=== PATIENT | female | born 1990 | race American Indian/Alaskan Native ===

== ENCOUNTER 2020-10-31 01:07 | Emergency (ER) | payer MEDICAID, OTHER ==
--- NOTE | 2020-10-31 01:44 | EDM.PDOC ---
ED HPI GENERAL MEDICAL PROBLEM - General Chief Complaint: Gastrointestinal Problem Stated Complaint: STOMACH Time Seen by Provider: 10/31/20 01:35 Source of Information: Reports: Patient History Limitations: Reports: No Limitations - History of Present Illness INITIAL COMMENTS - FREE TEXT/NARRATIVE: This 30 yo female patient reports to the ED with upper abdominal pain and nause a. The patient reports she did take a Zofran while at home and now her nausea is under control. The patient reports she does have a history of GERD, but does not take anything for GERD. The patient did not take any other medications for symptom relief prior to arrival in the ED. 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 [No Known Home Meds] 10/31/20 [History] Past Medical History Gastrointestinal History: Reports: GERD - Past Surgical History Other GI Surgeries/Procedures: states had GERD a few years ago Social & Family History - Tobacco Use Tobacco Use Status *Q: Never Tobacco User Second Hand Smoke Exposure: No - Caffeine Use Caffeine Use: Reports: Coffee, Soda - Recreational Drug Use Recreational Drug Use: No ED ROS GENERAL - Review of Systems Review Of Systems: Comprehensive ROS is negative, except as noted in HPI. ED EXAM, GI/ABD - Physical Exam Exam: See Below Exam Limited By: No Limitations General Appearance: Alert, WD/WN, Mild Distress Eyes: Bilateral: Normal Appearance, EOMI Ears: Normal External Exam, Normal Canal, Hearing Grossly Normal, Normal TMs Nose: Normal Inspection, Normal Mucosa, No Blood Throat/Mouth: Normal Inspection, Normal Lips, Normal Teeth, Normal Gums, Normal Oropharynx, Normal Voice, No Airway Compromise Head: Atraumatic, Normocephalic Neck: Normal Inspection, Supple, Non-Tender, Full Range of Motion Respiratory/Chest: No Respiratory Distress, Lungs Clear, Normal Breath Sounds, No Accessory Muscle Use, Chest Non-Tender Cardiovascular: Normal Peripheral Pulses, Regular Rate, Rhythm, No Edema, No Gallop, No JVD, No Murmur, No Rub GI/Abdominal Exam: Normal Bowel Sounds, No Distention, No Abnormal Bruit, No Mass, Pelvis Stable, Tender (epigastric area) (Female) Exam: Deferred Rectal (Female) Exam: Deferred Back Exam: Normal Inspection, Full Range of Motion, NT Extremities: Normal Inspection, Normal Range of Motion, Non-Tender, Normal Capillary Refill, No Pedal Edema Neurological: Alert, Oriented, CN II-XII Intact, Normal Cognition, Normal Gait, Normal Reflexes, No Motor/Sensory Deficits Psychiatric: Normal Affect, Normal Mood Skin Exam: Warm, Dry, Intact, Normal Color, No Rash Lymphatic: No Adenopathy Course - Vital Signs Last Recorded V/S: Last Vital Signs Temp 36.6 C 10/31/20 01:21 Pulse 84 10/31/20 01:21 Resp 18 10/31/20 01:21 BP 138/91 H 10/31/20 01:21 Pulse Ox 98 10/31/20 01:21 - Orders/Labs/Meds Labs: Laboratory Tests 10/31/20 10/31/20 10/31/20 Range/Units 01:29 01:29 02:45 WBC 12.7 H (5.0-10.0) 10^3/uL RBC 4.75 (4.2-5.4) 10^6/uL Hgb 13.8 (12.0-16.0) g/dL Hct 41.1 (37.0-47.0) % MCV 86.5 (80-100) fL MCH 29.1 (27.0-34.0) pg MCHC 33.6 (33.0-35.0) g/dL Plt Count 165 (150-450) 10^3/uL Neut % (Auto) 74.5 (42.2-75.2) % Lymph % (Auto) 16.4 L (20.5-50.1) % Falls % (Auto) 7.9 (2-8) % Eos % (Auto) 0.9 L (1.0-3.0) % Baso % (Auto) 0.3 (0.0-1.0) % Sodium 141 (136-145) mmol/L Potassium 3.5 (3.5-5.1) mmol/L Chloride 104 (98-107) mmol/L Carbon Dioxide 27 (21-32) mmol/L Anion Gap 13.5 H (7-13) mEq/L BUN 14 (7-18) mg/dL Creatinine 0.81 (0.55-1.02) mg/dL Est Cr Clr Drug Dosing 90.55 mL/min Estimated GFR (MDRD) > 60 BUN/Creatinine Ratio 17.3 (No establ ref range) Glucose 111 H (70-99) mg/dL Calcium 8.4 L (8.5-10.1) mg/dL Total Bilirubin 0.6 (0.2-1.0) mg/dL AST 27 (15-37) U/L ALT 51 (14-59) U/L Alkaline Phosphatase 54 (46-116) U/L Total Protein 7.3 (6.4-8.2) g/dL Albumin 3.8 (3.4-5.0) g/dL Globulin 3.5 Albumin/Globulin Ratio 1.1 Amylase 41 (25-115) U/L Lipase 196 (73-393) U/L Urine Color Yellow (YELLOW) Urine Appearance Clear (CLEAR) Urine pH 7.0 (5.0-9.0) Ur Specific [place] >= 1.030 (1.005-1.030) Urine Protein Negative (NEGATIVE) Urine Glucose (UA) Negative (NEGATIVE) Urine Ketones 15 H (NEGATIVE) Urine Occult Blood Negative (NEGATIVE) Urine Nitrite Negative (NEGATIVE) Urine Bilirubin Negative (NEGATIVE) Urine Urobilinogen 0.2 (0.2-1.0) mg/dL Ur Leukocyte Esterase Negative (NEGATIVE) Urine HCG, Qual Urine Opiates Screen (NEGATIVE) Ur Oxycodone Screen (NEGATIVE) Urine Methadone Screen (NEGATIVE) Ur Barbiturates Screen (NEGATIVE) U Tricyclic Antidepress (NEGATIVE) Ur Phencyclidine Scrn (NEGATIVE) Ur Amphetamine Screen (NEGATIVE) U Methamphetamines Scrn (NEGATIVE) Urine MDMA Screen (NEGATIVE) U Benzodiazepines Scrn (NEGATIVE) Urine Cocaine Screen (NEGATIVE) U Marijuana (THC) Screen (NEGATIVE) 10/31/20 10/31/20 Range/Units 02:45 02:45 WBC (5.0-10.0) 10^3/uL RBC (4.2-5.4) 10^6/uL Hgb (12.0-16.0) g/dL Hct (37.0-47.0) % MCV (80-100) fL MCH (27.0-34.0) pg MCHC (33.0-35.0) g/dL Plt Count (150-450) 10^3/uL Neut % (Auto) (42.2-75.2) % Lymph % (Auto) (20.5-50.1) % Falls % (Auto) (2-8) % Eos % (Auto) (1.0-3.0) % Baso % (Auto) (0.0-1.0) % Sodium (136-145) mmol/L Potassium (3.5-5.1) mmol/L Chloride (98-107) mmol/L Carbon Dioxide (21-32) mmol/L Anion Gap (7-13) mEq/L BUN (7-18) mg/dL Creatinine (0.55-1.02) mg/dL Est Cr Clr Drug Dosing mL/min Estimated GFR (MDRD) BUN/Creatinine Ratio (No establ ref range) Glucose (70-99) mg/dL Calcium (8.5-10.1) mg/dL Total Bilirubin (0.2-1.0) mg/dL AST (15-37) U/L ALT (14-59) U/L Alkaline Phosphatase (46-116) U/L Total Protein (6.4-8.2) g/dL Albumin (3.4-5.0) g/dL Globulin Albumin/Globulin Ratio Amylase (25-115) U/L Lipase (73-393) U/L Urine Color (YELLOW) Urine Appearance (CLEAR) Urine pH (5.0-9.0) Ur Specific [place] (1.005-1.030) Urine Protein (NEGATIVE) Urine Glucose (UA) (NEGATIVE) Urine Ketones (NEGATIVE) Urine Occult Blood (NEGATIVE) Urine Nitrite (NEGATIVE) Urine Bilirubin (NEGATIVE) Urine Urobilinogen (0.2-1.0) mg/dL Ur Leukocyte Esterase (NEGATIVE) Urine HCG, Qual Negative Urine Opiates Screen Negative (NEGATIVE) Ur Oxycodone Screen Negative (NEGATIVE) Urine Methadone Screen Negative (NEGATIVE) Ur Barbiturates Screen Negative (NEGATIVE) U Tricyclic Antidepress Negative (NEGATIVE) Ur Phencyclidine Scrn Negative (NEGATIVE) Ur Amphetamine Screen Negative (NEGATIVE) U Methamphetamines Scrn Negative (NEGATIVE) Urine MDMA Screen Negative (NEGATIVE) U Benzodiazepines Scrn Negative (NEGATIVE) Urine Cocaine Screen Negative (NEGATIVE) U Marijuana (THC) Screen Positive H (NEGATIVE) Meds: Medications Discontinued Medications Generic Name Dose Route Start Last Admin Trade Name Jasonq PRN Reason Stop Dose Admin Al Hydroxide/Mg Hydroxide 30 ml 10/31/20 03:02 Gi Cocktail Oral Solution 30 Ml PO 10/31/20 03:03 ONETIME ONE Departure - Departure Time of Disposition: 03:10 Disposition: Home, Self-Care 01 Condition: Fair Clinical Impression: GERD (gastroesophageal reflux disease) Qualifiers: Esophagitis presence: esophagitis presence not specified Qualified Code(s): K21.9 - Gastro-esophageal reflux disease without esophagitis - Discharge Information *PRESCRIPTION DRUG MONITORING PROGRAM REVIEWED*: Not Applicable *COPY OF PRESCRIPTION DRUG MONITORING REPORT IN PATIENT KI: Not Applicable Instructions: Food Choices for Gastroesophageal Reflux Disease, Adult, Gastroesophageal Reflux Disease, Adult, [id number] Forms: ED Department Discharge Care Plan Goals: The patient was advised of the examination and lab results during the visit. The patient was given a GI Cocktail while in the ED. The patient was discharged with a script for Omeprazole (20 mg) #30 to take 1 by mouth daily 30 minutes prior to eating. If the patient has any additional symptoms or concerns, the patient should either return to the emergency department or visit her primary care facility. Sepsis Event Note (ED) - Evaluation Sepsis Screening Result: No Definite Risk - Focused Exam Vital Signs: Vital Signs Temp Pulse Resp BP Pulse Ox 10/31/20 01:21 36.6 C 84 18 138/91 H 98
[2020-10-31 01:54] LABS: ANION GAP 13.5 mEq/L (7-13); CHLORIDE,CL 104 mmol/L (98-107); SODIUM,NA 141 mmol/L (136-145)
[2020-10-31] MEDS ORDERED: GI Cocktail Oral Solution 30 ML PO ONE (03:02)
== END 2020-10-31 03:16 | disposition home or self-care (01) ==
LOC: DL.ED 01:07
DX: K21.9 Gastro-esophageal reflux disease without esophagitis (principal); Z88.0 Allergy status to penicillin
CPT/HCPCS: 36415; 80053; 80305; 81003; 81025; 82150; 83690; 85025; 99283; 99284; A9270

== ENCOUNTER 2020-11-17 01:03 | Emergency (ER) | payer OTHER, MEDICAID ==
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
[2020-11-17] MEDS ORDERED: Acetaminophen/HYDROcodone 325-10 MG Tab PO ONE (03:08)
== END 2020-11-17 04:15 | disposition home or self-care (01) ==
LOC: DL.ED 01:03
DX: S92.032A Displaced avulsion fracture of tuberosity of left calcaneus, initial encounter for closed fracture (principal); S00.83XA Contusion of other part of head, initial encounter; Z88.0 Allergy status to penicillin; V49.49XA Driver injured in collision with other motor vehicles in traffic accident, initial encounter
CPT/HCPCS: 29515; 70140; 73600-LT; 73620-LT; 99284; 99284-25; A9270-GY

== ENCOUNTER 2021-01-03 07:01 | Emergency (ER) | payer MEDICAID ==
[2021-01-03] MEDS ORDERED: Ondansetron 4 MG/2 ML SDV IVPUSH ONE (07:18)
[2021-01-03] MEDS ORDERED: Sodium Chloride 0.9% 1,000 ML IV ONE (07:18)
[2021-01-03] MEDS ORDERED: GI Cocktail Oral Solution 30 ML PO ONE (07:19)
--- NOTE | 2021-01-03 07:25 | EDM.PDOC ---
ED HPI GENERAL MEDICAL PROBLEM - General Chief Complaint: Abdominal Pain Stated Complaint: STOMACH PAIN [id number] Time Seen by Provider: 01/03/21 07:22 Source of Information: Reports: Patient, RN, RN Notes Reviewed History Limitations: Reports: No Limitations - History of Present Illness INITIAL COMMENTS - FREE TEXT/NARRATIVE: Miki is a 30 y/o female with a history of GERD who presents to the ED via personal vehicle with complaints of bilateral abdominal pain and vomiting. The patient reports the pain woke her from sleep at approximately 0500 and has progressively worsened since that time. She reports her last meal was last evening and was fried chicken from [facility]. Her LMP was early December, but she is unsure of the exact date. She denies fever, shaking chills, chest pain, palpitations, shortness of breath, dysuria, hematuria, vaginal discharge, diarrhea, or constipation. She has taken no medications for these symptoms. The patient attest to smoking marijuana last night; she denies alcohol or tobacco use. Abdomen Pain Score (Numeric/FACES): 10 - Related Data Allergies Allergy/AdvReac Type Severity Reaction Status Date / Time amoxicillin Allergy Hives Verified 01/03/21 07:39 Home Meds: Home Meds . [No Known Home Meds] 10/31/20 [History] Past Medical History - Past Health History Medical/Surgical History: Denies Medical/Surgical History Gastrointestinal History: Reports: GERD - Past Surgical History Other GI Surgeries/Procedures: states had GERD a few years ago Social & Family History - Family History Family Medical History: No Pertinent Family History - Caffeine Use Caffeine Use: Reports: Soda ED ROS GENERAL - Review of Systems Review Of Systems: Comprehensive ROS is negative, except as noted in HPI. ED EXAM, GI/ABD - Physical Exam Exam: See Below Exam Limited By: No Limitations General Appearance: Alert, Anxious (Restless and tearful), Moderate Distress, Thin, Active Emesis Eyes: Bilateral: Normal Appearance, EOMI Ears: Normal External Exam, Hearing Grossly Normal Nose: Normal Inspection, Normal Mucosa Throat/Mouth: Normal Inspection, Normal Oropharynx, Normal Voice, No Airway Compromise Head: Atraumatic, Normocephalic Neck: Normal Inspection, Supple, Non-Tender, Full Range of Motion Respiratory/Chest: No Respiratory Distress, Lungs Clear, Normal Breath Sounds, No Accessory Muscle Use, Chest Non-Tender Cardiovascular: Normal Peripheral Pulses, Regular Rate, Rhythm, No Edema, No Gallop, No JVD, No Murmur, No Rub GI/Abdominal Exam: Soft, No Distention, No Abnormal Bruit, No Mass, Pelvis Stable, Tender (To bilateral ), Abnormal Bowel Sounds (Hypoactive bowel sounds) (Female) Exam: Deferred Rectal (Female) Exam: Deferred Back Exam: Normal Inspection, Full Range of Motion. No: CVA Tenderness (L), CVA Tenderness (R) Extremities: Normal Inspection, Normal Range of Motion, Non-Tender, No Pedal Edema, Normal Capillary Refill Neurological: Alert, Oriented, CN II-XII Intact, Normal Cognition, Normal Gait, No Motor/Sensory Deficits Psychiatric: Normal Affect, Normal Mood Skin Exam: Warm, Dry, Intact, Normal Color, No Rash. No: Cyanosis, Erythema, Jaundice, Mottled, Pallor, Petechiae Course - Vital Signs Last Recorded V/S: Last Vital Signs Temp 97.9 F 01/03/21 07:13 Pulse 61 01/03/21 07:13 Resp 20 01/03/21 07:13 BP 113/70 01/03/21 09:13 Pulse Ox 100 01/03/21 07:13 - Orders/Labs/Meds Labs: Laboratory Tests 01/03/21 01/03/21 01/03/21 Range/Units 07:15 07:15 07:15 WBC 14.0 H (5.0-10.0) 10^3/uL RBC 5.07 (4.2-5.4) 10^6/uL Hgb 14.9 (12.0-16.0) g/dL Hct 43.2 (37.0-47.0) % MCV 85.2 (80-100) fL MCH 29.4 (27.0-34.0) pg MCHC 34.5 (33.0-35.0) g/dL Plt Count 161 (150-450) 10^3/uL Neut % (Auto) 77.5 H (42.2-75.2) % Lymph % (Auto) 14.0 L (20.5-50.1) % [place] % (Auto) 7.9 (2-8) % Eos % (Auto) 0.4 L (1.0-3.0) % Baso % (Auto) 0.2 (0.0-1.0) % Sodium 141 (136-145) mmol/L Potassium 3.6 (3.5-5.1) mmol/L Chloride 104 (98-107) mmol/L Carbon Dioxide 22 (21-32) mmol/L Anion Gap 18.6 H (7-13) mEq/L BUN 7 (7-18) mg/dL Creatinine 0.83 (0.55-1.02) mg/dL Est Cr Clr Drug Dosing 88.37 mL/min Estimated GFR (MDRD) > 60 BUN/Creatinine Ratio 8.4 (No establ ref range) Glucose 126 H (70-99) mg/dL Lactic Acid 1.7 (0.4-2.0) mmol/L Calcium 8.4 L (8.5-10.1) mg/dL Magnesium 2.1 (1.8-2.4) mg/dL Total Bilirubin 1.0 (0.2-1.0) mg/dL AST 50 H (15-37) U/L ALT 64 H (14-59) U/L Alkaline Phosphatase 57 (46-116) U/L C-Reactive Protein < 0.2 (0.0-0.9) mg/dL Total Protein 7.5 (6.4-8.2) g/dL Albumin 3.9 (3.4-5.0) g/dL Globulin 3.6 Albumin/Globulin Ratio 1.1 Amylase 46 (25-115) U/L Lipase 179 (73-393) U/L Urine Color (YELLOW) Urine Appearance (CLEAR) Urine pH (5.0-9.0) Ur Specific [place] (1.005-1.030) Urine Protein (NEGATIVE) Urine Glucose (UA) (NEGATIVE) Urine Ketones (NEGATIVE) Urine Occult Blood (NEGATIVE) Urine Nitrite (NEGATIVE) Urine Bilirubin (NEGATIVE) Urine Urobilinogen (0.2-1.0) mg/dL Ur Leukocyte Esterase (NEGATIVE) Urine RBC /HPF Urine WBC (0-5/HPF) /HPF Ur Epithelial Cells (NOT SEEN) /HPF Amorphous Sediment (NOT SEEN) /HPF Urine Bacteria (0-FEW/HPF) /HPF Urine Mucus (NOT SEEN) /LPF Urine HCG, Qual Urine Opiates Screen (NEGATIVE) Ur Oxycodone Screen (NEGATIVE) Urine Methadone Screen (NEGATIVE) Ur Barbiturates Screen (NEGATIVE) U Tricyclic Antidepress (NEGATIVE) Ur Phencyclidine Scrn (NEGATIVE) Ur Amphetamine Screen (NEGATIVE) U Methamphetamines Scrn (NEGATIVE) Urine MDMA Screen (NEGATIVE) U Benzodiazepines Scrn (NEGATIVE) Urine Cocaine Screen (NEGATIVE) U Marijuana (THC) Screen (NEGATIVE) Ethyl Alcohol < 3 (0) mg/dL 01/03/21 01/03/21 01/03/21 Range/Units 07:49 07:49 07:49 WBC (5.0-10.0) 10^3/uL RBC (4.2-5.4) 10^6/uL Hgb (12.0-16.0) g/dL Hct (37.0-47.0) % MCV (80-100) fL MCH (27.0-34.0) pg MCHC (33.0-35.0) g/dL Plt Count (150-450) 10^3/uL Neut % (Auto) (42.2-75.2) % Lymph % (Auto) (20.5-50.1) % [place] % (Auto) (2-8) % Eos % (Auto) (1.0-3.0) % Baso % (Auto) (0.0-1.0) % Sodium (136-145) mmol/L Potassium (3.5-5.1) mmol/L Chloride (98-107) mmol/L Carbon Dioxide (21-32) mmol/L Anion Gap (7-13) mEq/L BUN (7-18) mg/dL Creatinine (0.55-1.02) mg/dL Est Cr Clr Drug Dosing mL/min Estimated GFR (MDRD) BUN/Creatinine Ratio (No establ ref range) Glucose (70-99) mg/dL Lactic Acid (0.4-2.0) mmol/L Calcium (8.5-10.1) mg/dL Magnesium (1.8-2.4) mg/dL Total Bilirubin (0.2-1.0) mg/dL AST (15-37) U/L ALT (14-59) U/L Alkaline Phosphatase (46-116) U/L C-Reactive Protein (0.0-0.9) mg/dL Total Protein (6.4-8.2) g/dL Albumin (3.4-5.0) g/dL Globulin Albumin/Globulin Ratio Amylase (25-115) U/L Lipase (73-393) U/L Urine Color Dark yellow (YELLOW) Urine Appearance Slightly cloudy (CLEAR) Urine pH 7.0 (5.0-9.0) Ur Specific [place] 1.025 (1.005-1.030) Urine Protein 30 H (NEGATIVE) Urine Glucose (UA) Negative (NEGATIVE) Urine Ketones >=160 H (NEGATIVE) Urine Occult Blood Negative (NEGATIVE) Urine Nitrite Negative (NEGATIVE) Urine Bilirubin Small H (NEGATIVE) Urine Urobilinogen 1.0 (0.2-1.0) mg/dL Ur Leukocyte Esterase Small H (NEGATIVE) Urine RBC Not seen /HPF Urine WBC 5-10 H (0-5/HPF) /HPF Ur Epithelial Cells Moderate H (NOT SEEN) /HPF Amorphous Sediment Moderate H (NOT SEEN) /HPF Urine Bacteria Few (0-FEW/HPF) /HPF Urine Mucus Not seen (NOT SEEN) /LPF Urine HCG, Qual Negative Urine Opiates Screen Negative (NEGATIVE) Ur Oxycodone Screen Negative (NEGATIVE) Urine Methadone Screen Negative (NEGATIVE) Ur Barbiturates Screen Negative (NEGATIVE) U Tricyclic Antidepress Negative (NEGATIVE) Ur Phencyclidine Scrn Negative (NEGATIVE) Ur Amphetamine Screen Negative (NEGATIVE) U Methamphetamines Scrn Negative (NEGATIVE) Urine MDMA Screen Negative (NEGATIVE) U Benzodiazepines Scrn Negative (NEGATIVE) Urine Cocaine Screen Negative (NEGATIVE) U Marijuana (THC) Screen Positive H (NEGATIVE) Ethyl Alcohol (0) mg/dL Meds: Medications Discontinued Medications Generic Name Dose Route Start Last Admin Trade Name Freq PRN Reason Stop Dose Admin Al Hydroxide/Mg Hydroxide 30 ml 01/03/21 07:19 01/03/21 07:38 Gi Cocktail Oral Solution 30 Ml PO 01/03/21 07:20 30 ml ONETIME ONE Administration Hydromorphone HCl 1 mg 01/03/21 08:16 01/03/21 08:19 Hydromorphone 1 Mg/Ml Syringe IVPUSH 01/03/21 08:17 1 mg ONETIME ONE Administration Sodium Chloride 1,000 mls @ 999 mls/hr 01/03/21 07:18 01/03/21 07:27 Normal Saline IV 01/03/21 08:18 999 mls/hr .BOLUS ONE Administration Vancomycin HCl 1.25 gm/ Sodium 250 mls @ 167 mls/hr 01/03/21 09:51 01/03/21 10:03 Chloride IV 01/03/21 11:20 167 mls/hr ONETIME ONE Administration Iopamidol 100 ml 01/03/21 10:47 01/03/21 10:48 Iopamidol 612 Mg/Ml 100 Ml Bottle IVPUSH 01/03/21 10:48 100 ml ONETIME ONE Administration Metoclopramide HCl 10 mg 01/03/21 07:49 01/03/21 07:56 Metoclopramide 10 Mg/2 Ml Sdv IVPUSH 01/03/21 07:50 10 mg ONETIME ONE Administration Ondansetron HCl 4 mg 01/03/21 07:18 01/03/21 07:28 Ondansetron 4 Mg/2 Ml Sdv IVPUSH 01/03/21 07:19 4 mg ONETIME ONE Administration - Radiology Interpretation Free Text/Narrative:: [facility] Final Radiology Report Call: [phone] assistance Online chat: [email or web address] Name: MIKI FAULKNER Age: 30Years F Date: 01/03/2021 SSN: -- : [id number] Study: CT ABDOMEN PELVIS W CONT Requesting Physician: Darlene Cruz Images: [id number] Addl Studies: Provided Clinical History: Bilateral upper abdominal pain; WBC 14; Vomiting Contrast: With Contrast Medium: Isovue Contrast Amount: 75 mL Contrast Method: Intravenous (IV) Page 1 of 2 PROCEDURE INFORMATION: Exam: CT Abdomen And Pelvis With Contrast Exam date and time: 01/03/2021 9:09 AM Age: 30 years old Clinical indication: Abdominal pain; Additional info: Bilateral upper abdominal pain; Wbc 14; Vomiting TECHNIQUE: Imaging protocol: Computed tomography of the abdomen and pelvis with contrast. Radiation optimization: All CT scans at this facility use at least one of these dose optimization techniques: automated exposure control; mA and/or kV adjustment per patient size (includes targeted exams where dose is matched to clinical indication); or iterative reconstruction. Contrast material: ISOVUE; Contrast volume: 75 ml; Contrast route: INTRAVENOUS (IV); COMPARISON: No relevant prior studies available. FINDINGS: Liver: Normal. No mass. Gallbladder and bile ducts: Normal. No calcified stones. No ductal dilation. Pancreas: Normal. No ductal dilation. Spleen: Normal. No splenomegaly. Adrenal glands: Normal. No mass. Kidneys and ureters: Normal. No hydronephrosis. Stomach and bowel: Unremarkable. No obstruction. No mucosal thickening. Appendix: Dilated fluid-filled appendix consistent with appendicitis. Mild periappendiceal soft tissue stranding. Areas of slight increased density within the appendiceal lumen suspicious for appendicoliths. Maximum diameter of the appendix is approximately 1 cm. No evidence of appendiceal perforation. Intraperitoneal space: Unremarkable. No free air. No significant fluid collection. Vasculature: Normal variant retroaortic left renal vein. Lymph nodes: Unremarkable. No enlarged lymph nodes. Urinary bladder: Unremarkable as visualized. Reproductive: Unremarkable as visualized. Bones/joints: Unremarkable. No acute fracture. Soft tissues: Unremarkable. Other findings: No abscess identified. IMPRESSION: Acute appendicitis with possible tiny appendicoliths. No findings to suggest perforation. THIS REPORT CONTAINS FINDINGS THAT MAY BE CRITICAL TO PATIENT CARE. The findings were verbally communicated via telephone conference with Darlene Cruz at 9:3 9 AM CDT on 01/03/2021. The findings were acknowledged and understood. Thank you for allowing us to participate in the care of your patient. Dictated and Authenticated by: Devorah David MD 01/03/2021 9:40 AM Central Time ([place] & [place]) - Re-Assessments/Exams Free Text/Narrative Re-Assessment/Exam: 01/03/21 1L NS bolus and Zofran 4mg IVP administered while labs pending. Patient given GI cocktail. Will obtain CT abdomen/pelvis due to persistent pain and elevated WBC. Dilaudid 1mg IVP administered. Appendicitis confirmed via CT. Case discussed with Dr. Aviles who kindly agreed to accept patient for transfer. Will give Vanco prophylactic, as patient is allergic to Zosyn. Findings of examination, lab work, imaging, and discussion with Dr. Aviles reviewed with patient. Patient verbalized understanding and agreement with the plan of care. Departure - Departure Time of Disposition: 09:53 Disposition: DC/Tfer to [facility] 02 Condition: Good Clinical Impression: Appendicitis Qualifiers: Appendicitis type: acute appendicitis Acute appendicitis type: with localized peritonitis Appendicitis gangrene presence: without gangrene Appendicitis perforation presence: without perforation Appendicitis abscess presence: without abscess Qualified Code(s): K35.30 - Acute appendicitis with localized peritonitis, without perforation or gangrene - Discharge Information Forms: ED Department Discharge, Interfacility Transfer [facility] Sepsis Event Note (ED) - Evaluation Sepsis Screening Result: No Definite Risk
[2021-01-03 07:42] LABS: ANION GAP 18.6 mEq/L (7-13); CHLORIDE,CL 104 mmol/L (98-107); SODIUM,NA 141 mmol/L (136-145)
[2021-01-03] MEDS ORDERED: Metoclopramide 10 MG/2 ML SDV IVPUSH ONE (07:49)
[2021-01-03] MEDS ORDERED: HYDROmorphone 1 MG/ML Syringe IVPUSH ONE (08:16)
--- NOTE | 2021-01-03 09:40 | CT ---
PROCEDURE INFORMATION: Exam: CT Abdomen And Pelvis With Contrast Exam date and time: 01/03/2021 9:09 AM Age: 30 years old Clinical indication: Abdominal pain; Additional info: Bilateral upper abdominal pain; Wbc 14; Vomiting TECHNIQUE: Imaging protocol: Computed tomography of the abdomen and pelvis with contrast. Radiation optimization: All CT scans at this facility use at least one of these dose optimization techniques: automated exposure control; mA and/or kV adjustment per patient size (includes targeted exams where dose is matched to clinical indication); or iterative reconstruction. Contrast material: ISOVUE; Contrast volume: 75 ml; Contrast route: INTRAVENOUS (IV); COMPARISON: No relevant prior studies available. FINDINGS: Liver: Normal. No mass. Gallbladder and bile ducts: Normal. No calcified stones. No ductal dilation. Pancreas: Normal. No ductal dilation. Spleen: Normal. No splenomegaly. Adrenal glands: Normal. No mass. Kidneys and ureters: Normal. No hydronephrosis. Stomach and bowel: Unremarkable. No obstruction. No mucosal thickening. Appendix: Dilated fluid-filled appendix consistent with appendicitis. Mild periappendiceal soft tissue stranding. Areas of slight increased density within the appendiceal lumen suspicious for appendicoliths. Maximum diameter of the appendix is approximately 1 cm. No evidence of appendiceal perforation. Intraperitoneal space: Unremarkable. No free air. No significant fluid collection. Vasculature: Normal variant retroaortic left renal vein. Lymph nodes: Unremarkable. No enlarged lymph nodes. Urinary bladder: Unremarkable as visualized. Reproductive: Unremarkable as visualized. Bones/joints: Unremarkable. No acute fracture. Soft tissues: Unremarkable. Other findings: No abscess identified. IMPRESSION: Acute appendicitis with possible tiny appendicoliths. No findings to suggest perforation. THIS REPORT CONTAINS FINDINGS THAT MAY BE CRITICAL TO PATIENT CARE. The findings were verbally communicated via telephone conference with Darlene Cruz at 9:39 AM CDT on 01/03/2021. The findings were acknowledged and understood.
[2021-01-03] MEDS ORDERED: Iopamidol 612 MG/ML 100 ML Bottle IVPUSH ONE (10:47)
== END 2021-01-03 10:22 ==
LOC: DL.ED 07:01
DX: K35.30 Acute appendicitis with localized peritonitis, without perforation or gangrene (principal); K21.9 Gastro-esophageal reflux disease without esophagitis; Z88.0 Allergy status to penicillin
CPT/HCPCS: 36415; 74177; 80053; 80305-QW; 80307; 81001; 81025; 82150; 83605; 83690; 83735; 85025; 86140; 87086; 96374; 96375; 99284; 99285-25; A9270-GY; J1170; J2405; J2765; J3370; J7030; J7050; Q9967

== ENCOUNTER 2021-06-25 11:03 | Emergency (ER) | payer MEDICAID ==
[2021-06-25] MEDS ORDERED: Ibuprofen 600 MG Tab PO ONE (12:10)
[2021-06-25 12:13] LABS: AMPHETAMINES,URINE NEGATIVE (NEGATIVE); BARBITURATES,URINE NEGATIVE (NEGATIVE); BENZODIAZEPINE,URINE NEGATIVE (NEGATIVE); MDMA (ECSTASY), URINE NEGATIVE (NEGATIVE); METHADONE,URINE NEGATIVE (NEGATIVE); METHAMPHETAMINES,URINE NEGATIVE (NEGATIVE); OPIATES,URINE NEGATIVE (NEGATIVE); OXYCODONE,URINE NEGATIVE (NEGATIVE); PHENCYCLIDINE,URINE NEGATIVE (NEGATIVE); TCA,URINE NEGATIVE (NEGATIVE)
[2021-06-25 12:31] LABS: ANION GAP 15.8 mEq/L (7-13); CHLORIDE,CL 102 mmol/L (98-107); SODIUM,NA 139 mmol/L (136-145)
--- NOTE | 2021-06-25 12:41 | EDM.PDOC ---
ED HPI GENERAL MEDICAL PROBLEM - General Chief Complaint: Abdominal Pain Stated Complaint: LOWER ABDOMINAL PAIN Time Seen by Provider: 06/25/21 11:30 Source of Information: Reports: Patient, RN, RN Notes Reviewed History Limitations: Reports: No Limitations - History of Present Illness INITIAL COMMENTS - FREE TEXT/NARRATIVE: Ora is a 31 y/o female who presents to the ED via personal vehicle with complaints of abdominal pain and diarrhea. The patient states her symptoms began this morning and have progressively worsened in that time. She reports she was experiencing symptoms of constipation yesterday which prompted her to take ExLax this morning; she has since experienced one loose stool. The patient characterizes her pain as a sharp cramp which radiates across her lower abdomen and into her suprapubic region. She notes she is five days into her normal menses. She denies fever, chest pain/pressure, palpitations, shortness of breath, nausea, vomiting, dyspepsia, dysuria, hematochezia, or melena. The patient denies tobacco, alcohol, or recreational drug use. Her last meal was last night. Lower Abdominal Pain Score (Numeric/FACES): 5 - Related Data Allergies Allergy/AdvReac Type Severity Reaction Status Date / Time amoxicillin Allergy Hives Verified 01/03/21 07:39 Home Meds: Home Meds . [No Known Home Meds] 10/31/20 [History] Past Medical History - Past Health History Medical/Surgical History: Denies Medical/Surgical History Gastrointestinal History: Reports: GERD - Past Surgical History GI Surgical History: Reports: Appendectomy Other GI Surgeries/Procedures: states had GERD a few years ago Social & Family History - Family History Family Medical History: No Pertinent Family History - Tobacco Use Tobacco Use Status *Q: Unknown Ever Used Tobacco - Caffeine Use Caffeine Use: Reports: Energy Drinks - Recreational Drug Use Recreational Drug Use: No ED ROS GENERAL - Review of Systems Review Of Systems: Comprehensive ROS is negative, except as noted in HPI. ED EXAM, GI/ABD - Physical Exam Exam: See Below Exam Limited By: No Limitations General Appearance: Alert, Mild Distress (Abdominal pain). No: Active Emesis Eyes: Bilateral: Normal Appearance, EOMI Ears: Normal External Exam, Hearing Grossly Normal Nose: Normal Inspection, Normal Mucosa, No Blood Throat/Mouth: Normal Inspection, Normal Oropharynx, Normal Voice, No Airway Compromise Head: Atraumatic, Normocephalic Neck: Normal Inspection, Supple, Non-Tender, Full Range of Motion Respiratory/Chest: No Respiratory Distress, Lungs Clear, Normal Breath Sounds, No Accessory Muscle Use, Chest Non-Tender Cardiovascular: Normal Peripheral Pulses, Regular Rate, Rhythm, No Edema, No Gallop, No JVD, No Murmur, No Rub GI/Abdominal Exam: Soft, No Distention, No Abnormal Bruit, No Mass, Pelvis Stable, Guarding, Tender (Diffuse, more prominent to RLQ), Abnormal Bowel Sounds (Hyperactive bowel sounds). No: Rigid, Rebound (Female) Exam: Deferred Rectal (Female) Exam: Deferred Back Exam: Normal Inspection, Full Range of Motion Extremities: Normal Inspection, Normal Range of Motion, Non-Tender, No Pedal Edema, Normal Capillary Refill Neurological: Alert, Oriented, CN II-XII Intact, Normal Cognition, Normal Gait, No Motor/Sensory Deficits Psychiatric: Normal Affect, Normal Mood Skin Exam: Warm, Dry, Intact, Normal Color, No Rash. No: Cyanosis, Jaundice, Mottled, Pallor Course - Vital Signs Last Recorded V/S: Last Vital Signs Temp 99.2 F 06/25/21 11:25 Pulse 94 06/25/21 11:25 Resp 14 06/25/21 11:25 BP 125/93 H 06/25/21 11:25 Pulse Ox 98 06/25/21 11:25 - Orders/Labs/Meds Labs: Laboratory Tests 06/25/21 06/25/21 06/25/21 Range/Units 11:34 11:34 11:34 WBC (5.0-10.0) 10^3/uL RBC (4.2-5.4) 10^6/uL Hgb (12.0-16.0) g/dL Hct (37.0-47.0) % MCV (80-100) fL MCH (27.0-34.0) pg MCHC (33.0-35.0) g/dL Plt Count (150-450) 10^3/uL Neut % (Auto) (42.2-75.2) % Lymph % (Auto) (20.5-50.1) % [place] % (Auto) (2-8) % Eos % (Auto) (1.0-3.0) % Baso % (Auto) (0.0-1.0) % Sodium (136-145) mmol/L Potassium (3.5-5.1) mmol/L Chloride (98-107) mmol/L Carbon Dioxide (21-32) mmol/L Anion Gap (7-13) mEq/L BUN (7-18) mg/dL Creatinine (0.55-1.02) mg/dL Est Cr Clr Drug Dosing mL/min Estimated GFR (MDRD) BUN/Creatinine Ratio (No establ ref range) Glucose (70-99) mg/dL Lactic Acid (0.4-2.0) mmol/L Calcium (8.5-10.1) mg/dL Total Bilirubin (0.2-1.0) mg/dL AST (15-37) U/L ALT (14-59) U/L Alkaline Phosphatase (46-116) U/L C-Reactive Protein (0.0-0.9) mg/dL Total Protein (6.4-8.2) g/dL Albumin (3.4-5.0) g/dL Globulin Albumin/Globulin Ratio Amylase (25-115) U/L Lipase (73-393) U/L Urine Color Red (YELLOW) Urine Appearance Turbid (CLEAR) Urine pH 7.0 (5.0-9.0) Ur Specific [place] 1.020 (1.005-1.030) Urine Protein >=300 H (NEGATIVE) Urine Glucose (UA) Negative (NEGATIVE) Urine Ketones Trace H (NEGATIVE) Urine Occult Blood Large H (NEGATIVE) Urine Nitrite Positive H (NEGATIVE) Urine Bilirubin Moderate H (NEGATIVE) Urine Urobilinogen 4.0 H (0.2-1.0) mg/dL Ur Leukocyte Esterase Trace H (NEGATIVE) Urine RBC Packed H (0-5) /HPF Urine WBC 20-30 H (0-5/HPF) /HPF Ur Epithelial Cells Not seen (NOT SEEN) /HPF Urine Bacteria Not seen (0-FEW/HPF) /HPF Urine HCG, Qual Negative Urine Opiates Screen Negative (NEGATIVE) Ur Oxycodone Screen Negative (NEGATIVE) Urine Methadone Screen Negative (NEGATIVE) Ur Barbiturates Screen Negative (NEGATIVE) U Tricyclic Antidepress Negative (NEGATIVE) Ur Phencyclidine Scrn Negative (NEGATIVE) Ur Amphetamine Screen Negative (NEGATIVE) U Methamphetamines Scrn Negative (NEGATIVE) Urine MDMA Screen Negative (NEGATIVE) U Benzodiazepines Scrn Negative (NEGATIVE) Urine Cocaine Screen Negative (NEGATIVE) U Marijuana (THC) Screen Positive H (NEGATIVE) Ethyl Alcohol (0) mg/dL 06/25/21 06/25/21 06/25/21 Range/Units 11:54 11:54 11:54 WBC 15.0 H (5.0-10.0) 10^3/uL RBC 4.82 (4.2-5.4) 10^6/uL Hgb 13.9 (12.0-16.0) g/dL Hct 42.4 (37.0-47.0) % MCV 88.0 (80-100) fL MCH 28.8 (27.0-34.0) pg MCHC 32.8 L (33.0-35.0) g/dL Plt Count 168 (150-450) 10^3/uL Neut % (Auto) 82.4 H (42.2-75.2) % Lymph % (Auto) 9.7 L (20.5-50.1) % [place] % (Auto) 7.5 (2-8) % Eos % (Auto) 0.3 L (1.0-3.0) % Baso % (Auto) 0.1 (0.0-1.0) % Sodium 139 (136-145) mmol/L Potassium 3.8 (3.5-5.1) mmol/L Chloride 102 (98-107) mmol/L Carbon Dioxide 25 (21-32) mmol/L Anion Gap 15.8 H (7-13) mEq/L BUN 8 (7-18) mg/dL Creatinine 0.80 (0.55-1.02) mg/dL Est Cr Clr Drug Dosing 94.51 mL/min Estimated GFR (MDRD) > 60 BUN/Creatinine Ratio 10.0 (No establ ref range) Glucose 88 (70-99) mg/dL Lactic Acid 0.5 (0.4-2.0) mmol/L Calcium 8.3 L (8.5-10.1) mg/dL Total Bilirubin 1.3 H (0.2-1.0) mg/dL AST 41 H (15-37) U/L ALT 68 H (14-59) U/L Alkaline Phosphatase 63 (46-116) U/L C-Reactive Protein 5.6 H (0.0-0.9) mg/dL Total Protein 7.5 (6.4-8.2) g/dL Albumin 3.5 (3.4-5.0) g/dL Globulin 4.0 Albumin/Globulin Ratio 0.9 Amylase 27 (25-115) U/L Lipase 58 L (73-393) U/L Urine Color (YELLOW) Urine Appearance (CLEAR) Urine pH (5.0-9.0) Ur Specific [place] (1.005-1.030) Urine Protein (NEGATIVE) Urine Glucose (UA) (NEGATIVE) Urine Ketones (NEGATIVE) Urine Occult Blood (NEGATIVE) Urine Nitrite (NEGATIVE) Urine Bilirubin (NEGATIVE) Urine Urobilinogen (0.2-1.0) mg/dL Ur Leukocyte Esterase (NEGATIVE) Urine RBC (0-5) /HPF Urine WBC (0-5/HPF) /HPF Ur Epithelial Cells (NOT SEEN) /HPF Urine Bacteria (0-FEW/HPF) /HPF Urine HCG, Qual Urine Opiates Screen (NEGATIVE) Ur Oxycodone Screen (NEGATIVE) Urine Methadone Screen (NEGATIVE) Ur Barbiturates Screen (NEGATIVE) U Tricyclic Antidepress (NEGATIVE) Ur Phencyclidine Scrn (NEGATIVE) Ur Amphetamine Screen (NEGATIVE) U Methamphetamines Scrn (NEGATIVE) Urine MDMA Screen (NEGATIVE) U Benzodiazepines Scrn (NEGATIVE) Urine Cocaine Screen (NEGATIVE) U Marijuana (THC) Screen (NEGATIVE) Ethyl Alcohol < 3 (0) mg/dL Meds: Medications Discontinued Medications Generic Name Dose Route Start Last Admin Trade Name Jasonq PRN Reason Stop Dose Admin Fentanyl 50 mcg 06/25/21 12:48 06/25/21 12:58 Fentanyl 100 Mcg/2 Ml Sdv IVPUSH 06/25/21 12:49 50 mcg ONETIME ONE Administration Protocol Sodium Chloride 1,000 mls @ 999 mls/hr 06/25/21 12:46 06/25/21 12:57 Normal Saline IV 06/25/21 13:46 999 mls/hr .BOLUS ONE Administration Ibuprofen 600 mg 06/25/21 12:10 06/25/21 12:18 Ibuprofen 600 Mg Tab PO 06/25/21 12:11 600 mg ONETIME ONE Administration Iopamidol 100 ml 06/25/21 13:33 06/25/21 13:34 Iopamidol 612 Mg/Ml 100 Ml Bottle IVPUSH 06/25/21 13:34 75 ml ONETIME ONE Administration Ondansetron HCl 4 mg 06/25/21 12:47 06/25/21 12:57 Ondansetron 4 Mg/2 Ml Sdv IVPUSH 06/25/21 12:48 4 mg ONETIME ONE Administration - Re-Assessments/Exams Free Text/Narrative Re-Assessment/Exam: 06/25/21 NS 1L bolus, Zofran 4mg IVP, and Fentanyl 50mcg IVP administered while labs pending. CT abdomen/pelvis obtained. Findings of examination, lab work, and imaging reviewed with patient. Supportive cares discussed. Patient instructed to follow up with primary care provider regarding todays visit. Red flag signs and symptoms which would warrant immediate reevaluation reviewed. Patient verbalized understanding and agreement with the plan of care. Departure - Departure Time of Disposition: 14:31 Disposition: Home, Self-Care 01 Condition: Fair Clinical Impression: Gastroenteritis - Discharge Information *PRESCRIPTION DRUG MONITORING PROGRAM REVIEWED*: Not Applicable *COPY OF PRESCRIPTION DRUG MONITORING REPORT IN PATIENT KI: Not Applicable Instructions: Viral Gastroenteritis, Adult, [id number] Referrals: PCP,None [Primary Care Provider] - Forms: ED Department Discharge Additional Instructions: Rx: Bentyl 10mg (#20) 1.) Continue with frequent sips of fluids to stay hydrated and avoid nausea. 2.) Eat small, snack-sized meals to avoid nausea. 3.) Symptoms may persist for 7-10 days. 4.) You may take ibuprofen (Advil/Motrin) 400mg every six hours, as pain persists. You may also take acetaminophen (Tylenol) 650-1000mg every six hours, as pain persists. You may stagger these medications so you are taking a dose of either every three hours. 5.) Follow up with your primary care provider following illness course, sooner should symptoms worsen despite medications. Sepsis Event Note (ED) - Evaluation Sepsis Screening Result: No Definite Risk
[2021-06-25] MEDS ORDERED: Sodium Chloride 0.9% 1,000 ML IV ONE (12:46)
[2021-06-25] MEDS ORDERED: Ondansetron 4 MG/2 ML SDV IVPUSH ONE (12:47)
[2021-06-25] MEDS ORDERED: fentaNYL 100 MCG/2 ML SDV IVPUSH ONE (12:48)
[2021-06-25] MEDS ORDERED: Iopamidol 612 MG/ML 100 ML Bottle IVPUSH ONE (13:33)
--- NOTE | 2021-06-25 13:53 | CT ---
EXAMINATION: Abdomen Pelvis w Cont SEX: Female AGE: 31 years CLINICAL HISTORY: 31-year-old 167 pound female with diarrhea, bilateral lower quadrant pain, and abnormally elevated WBC (15,000). Appendix surgically removed December 2020. Scan technique: Volume acquisition of data from the abdomen and pelvis obtained during the intravenous administration of 75 cc nonionic Isovue contrast at 3 cc/s via injector while patient was lying supine on the Siemens multislice scanner [place], [place]. All data archived in the PACS system for storage, reformatting axial/sagittal/coronal planes and study. Interpretation: 1. Multiple small physiologic follicular type cysts identified in both ovaries. Unremarkable vascular midline uterus. 2. No extraovarian adnexal mass lesions. No free fluid in the dependent cul-de-sac. 3. Surgical clips clustered in the right lower quadrant (RLQ). Normal-appearing terminal ileum. Sigmoid diverticulosis. No inflammatory "dirty" peritoneal fat, abscess, mechanical bowel obstruction, ascites or free intraperitoneal air. 4. Gallbladder, liver, stomach, spleen, pancreas, adrenal glands and kidneys anatomically correct i.e. negative. 5. No sign of renal cortical mass lesion, nephrolithiasis or obstructive uropathy. 6. Normal caliber aortoiliac vessels. Lung bases clear. Normal cardiac silhouette. No pericardial or pleural effusions. 7. Lumbar spine unremarkable and normal pelvis/hips. CONCLUSION: Appendectomy. Sigmoid diverticulosis. Physiologic ovarian cysts. No sign of acute peritonitis, mechanical bowel obstruction, or abdominal malignancy.
== END 2021-06-25 15:26 | disposition home or self-care (01) ==
LOC: DL.ED 11:03
DX: K52.9 Noninfective gastroenteritis and colitis, unspecified (principal); Z88.0 Allergy status to penicillin
CPT/HCPCS: 36415; 74177; 80053; 80305-QW; 80307; 81001; 81025; 82150; 83605; 83690; 85025; 86140; 87086; 96374; 96375; 99284-25; 99285; A9270-GY; J2405; J3010; J7030; Q9967

== ENCOUNTER 2022-02-27 07:03 | Emergency (ER) | payer MEDICAID ==
[2022-02-27] MEDS ORDERED: Lidocaine 1% 5 ML VIAL INJECT ONE (07:47)
[2022-02-27] MEDS ORDERED: Bacitracin Oint 1 GM U/D Packet TOP ONE (08:31)
[2022-02-27] MEDS ORDERED: Ketorolac 30 MG/ML SDV IM ONE (08:31)
== END 2022-02-27 09:00 | disposition home or self-care (01) ==
LOC: DL.ED 07:03
DX: S45.211 Laceration of axillary or brachial vein, right side (principal); L03.111 Cellulitis of right axilla; L02.411 Cutaneous abscess of right axilla; Z88.0 Allergy status to penicillin
CPT/HCPCS: 10060; 10061; 12001; 87070; 87077; 87186; 96372; 99283; 99283-25

== ENCOUNTER 2023-03-03 21:32 | Emergency (ER) | payer OTHER, BC ==
[2023-03-03] MEDS ORDERED: Ketorolac 30 MG/ML SDV IM ONE (23:15)
== END 2023-03-03 23:45 | disposition home or self-care (01) ==
LOC: DL.ED 21:32
DX: S50.02XA Contusion of left elbow, initial encounter (principal); S70.12XA Contusion of left thigh, initial encounter; M54.2 Cervicalgia; R51.9 Headache, unspecified; Z88.0 Allergy status to penicillin; W22.09XA Striking against other stationary object, initial encounter
CPT/HCPCS: 36415; 70450; 72125; 84703; 96372; 99283; 99284; J1885